=== PATIENT | female | born 1990 | race Caucasian/White ===

== ENCOUNTER 2017-05-28 23:30 | Emergency (ER) | payer OTHER ==
[~2017-05-28] VITALS: Ht 160 cm; Wt 52.2 kg
[~2017-05-28 23:30] MED LIST: IBUPROFEN600 MG PO
== END 2017-05-29 02:00 | disposition left against medical advice (07) ==
LOC: CED 23:30
DX: Z53.21 Procedure and treatment not carried out due to patient leaving prior to being seen by health care provider (principal)